=== PATIENT | female | born 1965 | race Asian ===

== ENCOUNTER 2017-01-04 10:23 | Emergency (ER) | payer OTHER ==
[2017-01-04] MEDS ORDERED: MORPHINE 2 MG/ML SYRINGE IVP STA (11:39)
[2017-01-04] MEDS ORDERED: NITROGLYCERIN SL 0.4 MG TABLET SL STA (11:39)
[2017-01-04] MEDS ORDERED: ASPIRIN CHEW 81 MG TABLET PO STA (11:39)
[2017-01-04] MEDS ORDERED: ASPIRIN CHEW 81 MG TABLET ONE (11:47)
[2017-01-04] MEDS ORDERED: NITROGLYCERIN SL 0.4 MG TABLET SL ONE (11:48)
[2017-01-04] MEDS ORDERED: KETOROLAC 30 MG/ML VIAL ONE (12:24)
[2017-01-04] MEDS ORDERED: KETOROLAC 60 MG/2 ML VIAL IVP STA (12:40)
== END 2017-01-04 14:34 | disposition home or self-care (01) ==
DX: R07.89 Other chest pain (principal); I49.1 Atrial premature depolarization
CPT/HCPCS: 36415; 71020; 80053; 83690; 84484; 85025; 85379; 93005; 93010; 96374; 99284; A9270

== ENCOUNTER 2020-10-05 14:26 | Outpatient (CLI) | payer OTHER ==
--- NOTE | 2020-10-18 09:51 | Mammography Report ---
BILATERAL DIGITAL SCREENING MAMMOGRAM 3D/2D: 10/05/2020 CLINICAL: Routine screening. No prior exams were available for comparison. The tissue of both breasts is heterogeneously dense. T his may lower the sensitivity of mammography. There is an oval equal density focal asymmetry with an obscured and circumscribed margin in the right breast at 11 o'clock posterior depth. No other significant masses, calcifications, or other findings are seen in either breast. IMPRESSION: INCOMPLETE: NEEDS ADDITIONAL IMAGING EVALUATION The oval equal density focal asymmetry in the right breast is indeterminate. Mediolateral and spot c ompression views as well as additional views with possible ultrasound are recommended. This exam was interpreted at Station ID: [id number]. NOTE: For mammograms, a report in lay terms will be sent to the patient. Approximately 15% of breast malignancies will not be visualized mammographically. In the management of a palpable breast mass, a negative mammogram must not discourage biopsy of a clinically suspicious lesion. Electronically Signed By: Oneil Nielson M.D. ddp/penrad:10/15/2020 16:26:49 ACR BI-RADS Category 0: Incomplete 3340F PARENCHYMAL PATTERN: (D) - The breast(s) demonstrate(s) heterogeneously dense fibroglandular parenchy ma. BI-RADS CATEGORY: (0) - 0 Mammo and [place] [id number] Immediate follow-up LATERALITY: (B)
== END 2020-10-05 14:27 | disposition home or self-care (01) ==
LOC: DI.N 14:26
DX: Z12.31 Encounter for screening mammogram for malignant neoplasm of breast (principal); N64.89 Other specified disorders of breast

== ENCOUNTER 2020-11-18 10:13 | Outpatient (CLI) | payer OTHER ==
--- NOTE | 2020-11-19 13:25 | Ultrasound Report ---
LIMITED ULTRASOUND OF RIGHT BREAST: 11/18/2020 CLINICAL: Patient returns today to evaluate a focal asymmetry in the right breast. Comparison is made to exams dated: 11/18/2020 mammogram, 10/05/2020 mammogram - [facility], and 06/16/2019 mammogram - [facility]. Color flow and real-time ultrasound of the right breast 8-10 o'clock region were performed. Brown sca le images of the real-time examination were reviewed. The breast tissue of the right breast is homogeneous dense. There is an area of fibrocystic tissue in the right breast from 8-10 o'clock anterior depth with eri ral small cysts, the largest measuring up to 0.6 cm at 9:00, and 0.7 cm at 10:00, possibly correspond ing to the mammographic finding. Color flow imaging demonstrates that there is no vascularity present . No other suspicious sonographic finding. IMPRESSION: PROBABLY BENIGN The area of fibrocystic tissue in the right breast is probably benign. A follow-up right mammogram and an ultrasound in 6 months is recommended to demonstrate stability of the mammographic asymmetry. Findings and recommendations were conveyed to the patient at time of exam. This exam was interpreted at Station ID: [id number]. Electronically Signed By: Annmarie aranda/:11/18/2020 12:20:54 Ultrasound BI-RADS: 3 Probably benign BI-RADS CATEGORY: (3) - 3 Mammo and [place] [id number] 6 month follow-up LATERALITY: (R)
--- NOTE | 2020-11-19 13:25 | Mammography Report ---
UNILATERAL RIGHT DIGITAL DIAGNOSTIC MAMMOGRAM 3D/2D: 11/18/2020 CLINICAL: Patient returns today to evaluate a focal asymmetry in the right breast. Comparison is made to exams dated: 10/05/2020 mammogram - [facility] and 06/16/2019 mammogram - [facility]. The tissue of right breast is heterogeneously dense. This may lower the sensitivity of mammography. There is an 8 mm oval equal density focal asymmetry with an indistinct margin in the right breast at 9 o'clock posterior depth. This is not convincingly seen in additional views. No other significant masses or calcifications are seen in the breast. IMPRESSION: INCOMPLETE: NEEDS ADDITIONAL IMAGING EVALUATION The oval equal density focal asymmetry in the right breast remains indeterminate. An ultrasound is r ecommended. This was performed immediately following this exam. This exam was interpreted at Station ID: [id number]. NOTE: For mammograms, a report in lay terms will be sent to the patient. Approximately 15% of breast malignancies will not be visualized mammographically. In the management of a palpable breast mass, a negative mammogram must not discourage biopsy of a clinically suspicious lesion. Electronically Signed By: Annmarie aranda/:11/18/2020 12:16:23 ACR BI-RADS Category 0: Incomplete 3340F PARENCHYMAL PATTERN: (D) - The breast(s) demonstrate(s) heterogeneously dense fibroglandular parrobby vasquez. BI-RADS CATEGORY: (0) - 0 Ultrasound [id number] Immediate follow-up LATERALITY: (B)
== END 2020-11-18 10:14 | disposition home or self-care (01) ==
LOC: DI 10:13
PROVIDERS: ATTEND Nurse Practitioner Family
DX: R92.2 Inconclusive mammogram (principal); N60.11 Diffuse cystic mastopathy of right breast